=== PATIENT | male | born 1945 | race Caucasian/White ===

== ENCOUNTER 2019-06-08 06:44 | Outpatient (CLI) | payer MEDICARE, SELFPAY ==
[2019-06-08 07:35] LABS: Hemoglobin A1C 7.4 % (<5.7)
[2019-06-08 07:37] LABS: Alanine Aminotransferase 13 U/L (4-50); Albumin Level 4.2 g/dL (3.5-5.1); Alkaline Phosphatase 69 U/L (38-126); Aspartate Amino Transferase 17 U/L (17-59); Bilirubin,Total 0.4 mg/dL (0.2-1.3); Blood Urea Nitrogen 42 mg/dL (9-20); Calcium 8.9 mg/dL (8.4-10.2); Carbon Dioxide 29 mmol/L (22-30); Chloride 102 mmol/L (98-107); Cholesterol 178 mg/dL (0-200); Estimated Glomerular Filt Rate 46; Glucose 137 mg/dL (75-110); HDL Direct 22 mg/dL; Potassium 4.1 mmol/L (3.4-5.0); Sodium 140 mmol/L (137-145); Triglycerides 209 mg/dL (<150)
[2019-06-08 07:48] LABS: LDL Cholesterol Direct 125 mg/dL
== END 2019-06-08 06:45 | disposition home or self-care (01) ==
PROVIDERS: PCP Internal Medicine; Visit Provider Internal Medicine
DX: I10 Essential (primary) hypertension (principal); E11.22 Type 2 diabetes mellitus with diabetic chronic kidney disease; E78.5 Hyperlipidemia, unspecified
CPT/HCPCS: 36415; 80053; 80061; 83036

== ENCOUNTER 2020-01-05 06:49 | Outpatient (CLI) | payer MEDICARE, SELFPAY ==
[2020-01-05 07:46] LABS: LDL Cholesterol Direct 139 mg/dL
[2020-01-05 07:49] LABS: Hemoglobin A1C 7.4 % (<5.7)
[2020-01-05 07:50] LABS: Alanine Aminotransferase 18 U/L (4-50); Albumin Level 3.9 g/dL (3.5-5.1); Alkaline Phosphatase 83 U/L (38-126); Anion Gap 6 mmol/L (8-16); Aspartate Amino Transferase 20 U/L (17-59); Bilirubin,Total 0.4 mg/dL (0.2-1.3); Blood Urea Nitrogen 32 mg/dL (9-20); Calcium 8.9 mg/dL (8.4-10.2); Carbon Dioxide 26 mmol/L (22-30); Chloride 107 mmol/L (98-107); Cholesterol 208 mg/dL (0-200); Estimated Glomerular Filt Rate 54; Glucose 185 mg/dL (75-110); HDL Direct 24 mg/dL; Potassium 4.5 mmol/L (3.4-5.0); Sodium 139 mmol/L (137-145); Triglycerides 329 mg/dL (<150)
== END 2020-01-05 06:50 | disposition home or self-care (01) ==
PROVIDERS: PCP Internal Medicine; Visit Provider Nurse Practitioner
DX: N18.3 Chronic kidney disease, stage 3 (moderate) (principal); E11.630 Type 2 diabetes mellitus with periodontal disease; E78.5 Hyperlipidemia, unspecified; N40.0 Benign prostatic hyperplasia without lower urinary tract symptoms; F32.9 Major depressive disorder, single episode, unspecified
CPT/HCPCS: 36415; 80053; 80061; 83036; 84153; 84443

== ENCOUNTER 2020-07-06 06:36 | Outpatient (CLI) | payer MEDICARE, SELFPAY ==
[2020-07-06 07:43] LABS: Alanine Aminotransferase 26 U/L (4-50); Alkaline Phosphatase 89 U/L (38-126); Anion Gap 8 mmol/L (8-16); Aspartate Amino Transferase 27 U/L (17-59); Bilirubin,Total 0.4 mg/dL (0.2-1.3); Blood Urea Nitrogen 29 mg/dL (9-20); Calcium 8.4 mg/dL (8.4-10.2); Carbon Dioxide 30 mmol/L (22-30); Chloride 103 mmol/L (98-107); Cholesterol 125 mg/dL (0-200); Estimated Glomerular Filt Rate 54; Glucose 250 mg/dL (75-110); HDL Direct 20 mg/dL; Potassium 4.9 mmol/L (3.4-5.0); Sodium 141 mmol/L (137-145); Triglycerides 330 mg/dL (<150)
[2020-07-06 08:02] LABS: Hemoglobin A1C 9.9 % (<5.7)
[2020-07-06 08:48] LABS: LDL Cholesterol Direct 40 mg/dL
== END 2020-07-06 06:37 | disposition home or self-care (01) ==
PROVIDERS: PCP Internal Medicine; Visit Provider Internal Medicine
DX: E11.630 Type 2 diabetes mellitus with periodontal disease (principal); I10 Essential (primary) hypertension; E78.5 Hyperlipidemia, unspecified
CPT/HCPCS: 36415; 80053; 80061; 83036

== ENCOUNTER 2020-10-11 06:44 | Outpatient (CLI) | payer MEDICARE, SELFPAY ==
[2020-10-11 07:27] LABS: Alanine Aminotransferase 14 U/L (4-50); Albumin Level 4.1 g/dL (3.5-5.1); Alkaline Phosphatase 74 U/L (38-126); Anion Gap 10 mmol/L (8-16); Aspartate Amino Transferase 20 U/L (17-59); Bilirubin,Total 0.2 mg/dL (0.2-1.3); Blood Urea Nitrogen 33 mg/dL (9-20); Calcium 8.9 mg/dL (8.4-10.2); Carbon Dioxide 27 mmol/L (22-30); Chloride 104 mmol/L (98-107); Cholesterol 127 mg/dL (0-200); Estimated Glomerular Filt Rate 49; Glucose 164 mg/dL (75-110); HDL Direct 25 mg/dL; Hemoglobin A1C 8.3 % (<5.7); Potassium 4.6 mmol/L (3.4-5.0); Sodium 141 mmol/L (137-145); Triglycerides 232 mg/dL (<150)
[2020-10-11 07:38] LABS: LDL Cholesterol Direct 57 mg/dL
[2020-10-11 08:03] LABS: Creatinine Urine 30.3 mg/dL
[2020-10-11 08:07] LABS: MALB Creatinine Ratio 211.2 mg/g (0-30)
== END 2020-10-11 06:45 | disposition home or self-care (01) ==
PROVIDERS: PCP Internal Medicine; Visit Provider Nurse Practitioner
DX: E78.5 Hyperlipidemia, unspecified (principal); E11.630 Type 2 diabetes mellitus with periodontal disease
CPT/HCPCS: 36415; 80053; 80061; 82043; 83036

== ENCOUNTER 2021-01-14 06:36 | Outpatient (CLI) | payer MEDICARE, SELFPAY ==
[2021-01-14 07:47] LABS: Alanine Aminotransferase 15 U/L (4-50); Albumin Level 4.3 g/dL (3.5-5.1); Alkaline Phosphatase 86 U/L (38-126); Anion Gap 7 mmol/L (8-16); Aspartate Amino Transferase 24 U/L (17-59); Bilirubin,Total 0.4 mg/dL (0.2-1.3); Blood Urea Nitrogen 43 mg/dL (9-20); Carbon Dioxide 30 mmol/L (22-30); Chloride 103 mmol/L (98-107); Cholesterol 152 mg/dL (0-200); Estimated Glomerular Filt Rate 49; Glucose 199 mg/dL (65-110); HDL Direct 25 mg/dL; Potassium 4.4 mmol/L (3.4-5.0); Sodium 140 mmol/L (137-145); Triglycerides 328 mg/dL (<150)
[2021-01-14 07:58] LABS: LDL Cholesterol Direct 77 mg/dL
== END 2021-01-14 06:37 | disposition home or self-care (01) ==
PROVIDERS: PCP Internal Medicine; Visit Provider Nurse Practitioner
DX: E11.630 Type 2 diabetes mellitus with periodontal disease (principal); E78.5 Hyperlipidemia, unspecified
CPT/HCPCS: 36415; 80053; 80061; 83036

== ENCOUNTER 2021-03-18 10:30 | Outpatient (RCR) | payer MEDICARE, SELFPAY ==
[2021-02-13 11:14] VITALS: BMI 42.1
[2021-02-13 11:15] VITALS: BMI 42.1
== END 2021-04-14 10:48 | disposition home or self-care (01) ==
LOC: ANHDMC 10:30
PROVIDERS: PCP Internal Medicine; Visit Provider Nurse Practitioner
DX: E11.22 Type 2 diabetes mellitus with diabetic chronic kidney disease (principal); E11.65 Type 2 diabetes mellitus with hyperglycemia; N18.30 Chronic kidney disease, stage 3 unspecified; Z71.3 Dietary counseling and surveillance; Z71.89 Other specified counseling
CPT/HCPCS: 97804; G0108

== ENCOUNTER 2021-04-14 06:42 | Outpatient (CLI) | payer MEDICARE, SELFPAY ==
[2021-04-14 07:36] LABS: Hemoglobin A1C 7.8 % (<5.7)
[2021-04-14 07:40] LABS: Alanine Aminotransferase 20 U/L (4-50); Albumin Level 4.4 g/dL (3.5-5.1); Alkaline Phosphatase 105 U/L (38-126); Anion Gap 9 mmol/L (8-16); Aspartate Amino Transferase 20 U/L (17-59); Bilirubin,Total 0.5 mg/dL (0.2-1.3); Blood Urea Nitrogen 38 mg/dL (9-20); Calcium 8.8 mg/dL (8.4-10.2); Carbon Dioxide 27 mmol/L (22-30); Chloride 100 mmol/L (98-107); Cholesterol 156 mg/dL (0-200); Estimated Glomerular Filt Rate 42; Glucose 179 mg/dL (65-110); HDL Direct 23 mg/dL; Sodium 136 mmol/L (137-145); Triglycerides 254 mg/dL (<150)
[2021-04-14 07:51] LABS: LDL Cholesterol Direct 86 mg/dL
== END 2021-04-14 06:43 | disposition home or self-care (01) ==
LOC: ANHLAB 06:44
PROVIDERS: PCP Internal Medicine; Visit Provider Nurse Practitioner
DX: E78.5 Hyperlipidemia, unspecified (principal); E11.22 Type 2 diabetes mellitus with diabetic chronic kidney disease; N18.30 Chronic kidney disease, stage 3 unspecified
CPT/HCPCS: 36415; 80053; 80061; 83036

== ENCOUNTER 2021-06-06 09:30 | Outpatient (RCR) | payer MEDICARE, SELFPAY | END 2021-08-04 09:23 | disposition home or self-care (01) | LOC: ANHDMC 09:30 | PROVIDERS: PCP Internal Medicine; Visit Provider Nurse Practitioner | DX: E11.22 Type 2 diabetes mellitus with diabetic chronic kidney disease (principal); E11.65 Type 2 diabetes mellitus with hyperglycemia; N18.30 Chronic kidney disease, stage 3 unspecified; Z71.89 Other specified counseling | CPT/HCPCS: 99199; G0109 ==

== ENCOUNTER 2021-08-14 10:10 | Outpatient (RCR) | payer MEDICARE, SELFPAY | END 2021-11-03 13:15 | disposition home or self-care (01) | LOC: ANHDMC 10:10 | PROVIDERS: PCP Internal Medicine; Visit Provider Nurse Practitioner | DX: E11.22 Type 2 diabetes mellitus with diabetic chronic kidney disease (principal); Z71.3 Dietary counseling and surveillance | CPT/HCPCS: G0108 ==

== ENCOUNTER 2021-10-16 06:35 | Outpatient (CLI) | payer MEDICARE, SELFPAY ==
[2021-10-16 07:26] LABS: Alanine Aminotransferase 19 U/L (6-50); Albumin Level 4.4 g/dL (3.5-5.1); Alkaline Phosphatase 96 U/L (38-126); Anion Gap 8 mmol/L (8-16); Aspartate Amino Transferase 32 U/L (17-59); Bilirubin,Total 0.4 mg/dL (0.2-1.3); Blood Urea Nitrogen 36 mg/dL (9-20); Calcium 8.5 mg/dL (8.4-10.2); Carbon Dioxide 30 mmol/L (22-30); Chloride 101 mmol/L (98-107); Cholesterol 138 mg/dL (0-200); Estimated Glomerular Filt Rate 45; Glucose 168 mg/dL (65-110); HDL Direct 22 mg/dL; Potassium 4.1 mmol/L (3.4-5.0); Sodium 139 mmol/L (137-145); Triglycerides 272 mg/dL (<150)
[2021-10-16 07:37] LABS: LDL Cholesterol Direct 70 mg/dL
[2021-10-16 08:34] LABS: Hemoglobin A1C 7.9 % (<5.7)
[2021-10-16 10:59] LABS: Creatinine Urine 113.5 mg/dL
[2021-10-16 11:19] LABS: MALB Creatinine Ratio 421.3 mg/g (0-30); Microalbumin Urine Random 478.2 mg/L (0-16.7)
== END 2021-10-16 06:36 | disposition home or self-care (01) ==
PROVIDERS: PCP Internal Medicine; Visit Provider Internal Medicine
DX: E78.5 Hyperlipidemia, unspecified (principal); E11.22 Type 2 diabetes mellitus with diabetic chronic kidney disease; I50.30 Unspecified diastolic (congestive) heart failure; E11.9 Type 2 diabetes mellitus without complications; N18.30 Chronic kidney disease, stage 3 unspecified
CPT/HCPCS: 36415; 80053; 80061; 82043; 83036

== ENCOUNTER 2022-01-21 06:37 | Outpatient (CLI) | payer MEDICARE, SELFPAY ==
[2022-01-21 07:43] LABS: Alanine Aminotransferase 22 U/L (6-50); Albumin Level 4.4 g/dL (3.5-5.1); Alkaline Phosphatase 79 U/L (38-126); Anion Gap 14 mmol/L (8-16); Aspartate Amino Transferase 37 U/L (17-59); Bilirubin,Total 0.4 mg/dL (0.2-1.3); Blood Urea Nitrogen 35 mg/dL (9-20); Calcium 8.4 mg/dL (8.4-10.2); Carbon Dioxide 23 mmol/L (22-30); Chloride 104 mmol/L (98-107); Cholesterol 156 mg/dL (0-200); Estimated Glomerular Filt Rate 54; Glucose 155 mg/dL (65-110); HDL Direct 22 mg/dL; Potassium 4.3 mmol/L (3.4-5.0); Sodium 141 mmol/L (137-145); Triglycerides 285 mg/dL (<150)
[2022-01-21 07:54] LABS: LDL Cholesterol Direct 79 mg/dL
[2022-01-21 08:06] LABS: Creatinine Urine 95.7 mg/dL
[2022-01-21 08:55] LABS: Microalbumin Urine Random > 1140.0 mg/L (0-16.7)
== END 2022-01-21 06:38 | disposition home or self-care (01) ==
LOC: ANHLAB 06:40
PROVIDERS: PCP Internal Medicine; Visit Provider Nurse Practitioner
DX: E78.5 Hyperlipidemia, unspecified (principal); E11.22 Type 2 diabetes mellitus with diabetic chronic kidney disease; N18.30 Chronic kidney disease, stage 3 unspecified
CPT/HCPCS: 36415; 80053; 80061; 82043; 83036

== ENCOUNTER 2022-04-11 11:02 | Outpatient (CLI) | payer MEDICARE, SELFPAY ==
[2022-04-11 11:52] LABS: Hematocrit 47.9 % (42.0-52.0); Hemoglobin 15.4 g/dL (14.0-18.0); Mean Corpuscular HGB Conc 32.2 g/dl (32-36); Mean Corpuscular Hemoglobin 28.8 pg (26-34); Mean Corpuscular Volume 89.5 fl (80-100); Mean Platelet Volume 10.1 fl (7.4-10.4); Platelet Count Result 279 k/mm3 (150-375); Red Blood Count 5.35 M/mm3 (4.6-6.20); White Blood Count 10.8 K/mm3 (4.5-10.0)
[2022-04-11 12:04] LABS: Albumin Level 4.4 g/dL (3.5-5.1); Anion Gap 8 mmol/L (8-16); Blood Urea Nitrogen 26 mg/dL (9-20); Calcium 8.6 mg/dL (8.4-10.2); Carbon Dioxide 25 mmol/L (22-30); Chloride 103 mmol/L (98-107); Estimated Glomerular Filt Rate > 60; Glucose 134 mg/dL (65-110); Phosphorus 3.7 mg/dL (2.5-4.5); Potassium 4.5 mmol/L (3.4-5.0); Sodium 136 mmol/L (137-145)
[2022-04-11 12:13] LABS: Appearance Urine Clear (Clear); Bilirubin Urine Negative (Negative); Blood Urine Negative (Negative); Color Urine Yellow (Yellow); Glucose Urine UA 2+ mg/dL (Negative); Ketones Urine Negative (Negative); Leukocyte Esterase Ur Negative LEU/UL (Negative); Nitrate Urine Negative (Negative); Protein Urine 3+ mg/dL (Negative); Urobilinogen Urine 0.2 mg/dL (<2.0); pH Urine 5.5 (5.0-9.0)
[2022-04-11 12:20] LABS: Creatinine Urine 58.8 mg/dL
[2022-04-11 12:39] LABS: Mucus Urine Rare /lpf; Squamous Epithelial Cell Urine Rare /hpf (Few); WBC Urine 0-3 /hpf
[2022-04-11 12:43] LABS: Complement C3 167 mg/dL (88-165)
[2022-04-11 12:44] LABS: Add Urine Microscopic? YES; Total Protein Urine Random 382 mg/dL
[2022-04-11 13:05] LABS: Erythrocyte Sedimentation Rate 18 mm/hr (0-20)
[2022-04-15 13:04] LABS: Kappa\\Lambda Light Chains 1.35 (0.26-1.65); Lambda Light Chain 41.1 mg/L (5.7-26.3)
[2022-04-16 17:34] LABS: Complement Total CH50 >60 U/mL (31-60)
== END 2022-04-11 11:03 | disposition home or self-care (01) ==
LOC: ANHLAB 11:08
PROVIDERS: PCP Internal Medicine; Visit Provider Internal Medicine Nephrology
DX: N18.31 Chronic kidney disease, stage 3a (principal)
CPT/HCPCS: 36415; 80069; 81001; 82570; 83883; 83970; 84156; 85027; 85652; 86038; 86160; 86162; 86334

== ENCOUNTER 2022-04-21 10:15 | Outpatient (CLI) | payer MEDICARE, SELFPAY ==
[2022-04-28 09:47] LABS: Albumin 74 %; Creat 24 Hr 0.48 g/24 h (0.50-2.15); Measured Kappa Chains 1.25 mg/dL (<2.00); Measured Lambda Chains <1.00 mg/dL (<2.00); Pro/Creat Ratio 876 mg/g creat (<100); Protein,total, 24 Hr Ur 418 mg/24 h (<100); Total Kappa Chains 13.75 mg/24 h
== END 2022-04-21 10:16 | disposition home or self-care (01) ==
PROVIDERS: PCP Internal Medicine; Visit Provider Internal Medicine Nephrology
DX: N18.31 Chronic kidney disease, stage 3a (principal)
CPT/HCPCS: 86335

== ENCOUNTER 2022-04-24 13:04 | Outpatient (CLI) | payer MEDICARE, SELFPAY ==
--- NOTE | ~2022-04-24 | US_ITS ---
Renal-Bladder ultrasound Clinical History: Chronic kidney disease Technique: Real-time sonographic imaging of the kidneys and urinary bladder was performed. Findings: The right kidney measures 10.0 cm in length and the left kidney measures 10.9 cm. There is no hydronephrosis or renal calculus identified. Renal cortical echogenicity is within normal limits. No solid renal mass lesion is identified. Small left renal cysts noted. The urinary bladder is partially distended at the time of this exam. No intraluminal echoes are ident ified. No abnormal wall thickening is seen. Impression: No significant abnormality seen. Reviewed, dictated and finalized at location [] ON THERAPIST Impression: No significant abnormality seen.
== END 2022-04-24 13:05 | disposition home or self-care (01) ==
PROVIDERS: PCP Internal Medicine; Visit Provider Internal Medicine Nephrology
DX: N18.31 Chronic kidney disease, stage 3a (principal)
CPT/HCPCS: 76775

== ENCOUNTER 2022-05-28 09:43 | Outpatient (CLI) | payer MEDICARE, SELFPAY ==
[2022-05-28 10:36] LABS: Albumin Level 4.3 g/dL (3.5-5.1); Anion Gap 9 mmol/L (8-16); Blood Urea Nitrogen 32 mg/dL (9-20); Calcium 8.2 mg/dL (8.4-10.2); Carbon Dioxide 27 mmol/L (22-30); Chloride 103 mmol/L (98-107); Estimated Glomerular Filt Rate 53; Glucose 138 mg/dL (65-110); Phosphorus 3.7 mg/dL (2.5-4.5); Potassium 4.2 mmol/L (3.4-5.0); Sodium 139 mmol/L (137-145)
[2022-05-28 12:35] LABS: Creatinine Urine 23.2 mg/dL; Total Protein Urine Random 101 mg/dL; Ur Ttl Prot Creatinine Ratio 4.35 mg/mg (0-0.20)
== END 2022-05-28 09:44 | disposition home or self-care (01) ==
PROVIDERS: PCP Internal Medicine; Visit Provider Internal Medicine Nephrology
DX: N18.31 Chronic kidney disease, stage 3a (principal)
CPT/HCPCS: 36415; 80069; 82570; 84156

== ENCOUNTER 2022-07-31 06:39 | Outpatient (CLI) | payer MEDICARE, SELFPAY ==
[2022-07-31 07:23] LABS: Hemoglobin A1C 7.2 % (<5.7)
[2022-07-31 07:31] LABS: Alanine Aminotransferase 19 U/L (6-50); Albumin Level 4.1 g/dL (3.5-5.1); Alkaline Phosphatase 70 U/L (38-126); Anion Gap 4 mmol/L (8-16); Aspartate Amino Transferase 23 U/L (17-59); Bilirubin,Total 0.6 mg/dL (0.2-1.3); Blood Urea Nitrogen 41 mg/dL (9-20); Calcium 8.3 mg/dL (8.4-10.2); Carbon Dioxide 32 mmol/L (22-30); Chloride 104 mmol/L (98-107); Cholesterol 137 mg/dL (0-200); Estimated Glomerular Filt Rate > 60; Glucose 132 mg/dL (65-110); HDL Direct 20 mg/dL; Sodium 140 mmol/L (137-145); Triglycerides 221 mg/dL (<150)
[2022-07-31 07:37] LABS: LDL Cholesterol Direct 79 mg/dL
== END 2022-07-31 06:40 | disposition home or self-care (01) ==
PROVIDERS: PCP Internal Medicine; Visit Provider Nurse Practitioner
DX: E78.5 Hyperlipidemia, unspecified (principal); E11.22 Type 2 diabetes mellitus with diabetic chronic kidney disease; N18.30 Chronic kidney disease, stage 3 unspecified
CPT/HCPCS: 36415; 80053; 80061; 83036

== ENCOUNTER 2022-09-15 10:49 | Outpatient (CLI) | payer MEDICARE, SELFPAY ==
[2022-09-15 11:32] LABS: Total Protein Urine Random 464 mg/dL; Ur Ttl Prot Creatinine Ratio 6.27 mg/mg (0-0.20)
[2022-09-15 11:35] LABS: Albumin Level 4.2 g/dL (3.5-5.1); Anion Gap 6 mmol/L (8-16); Blood Urea Nitrogen 26 mg/dL (9-20); Calcium 8.5 mg/dL (8.4-10.2); Carbon Dioxide 29 mmol/L (22-30); Chloride 102 mmol/L (98-107); Estimated Glomerular Filt Rate > 60; Glucose 140 mg/dL (65-110); Potassium 4.1 mmol/L (3.4-5.0); Sodium 137 mmol/L (137-145)
[2022-09-15 11:46] LABS: Parathyroid Intact 64.6 pg/mL (7.5-53.5)
== END 2022-09-15 10:50 | disposition home or self-care (01) ==
PROVIDERS: PCP Internal Medicine; Visit Provider Internal Medicine Nephrology
DX: N18.31 Chronic kidney disease, stage 3a (principal); R80.1 Persistent proteinuria, unspecified
CPT/HCPCS: 36415; 80069; 82570; 83970; 84156

== ENCOUNTER 2022-10-28 06:41 | Outpatient (CLI) | payer MEDICARE, SELFPAY ==
[2022-10-28 07:26] LABS: Alanine Aminotransferase 20 U/L (6-50); Albumin Level 4.2 g/dL (3.5-5.1); Alkaline Phosphatase 78 U/L (38-126); Anion Gap 8 mmol/L (8-16); Aspartate Amino Transferase 21 U/L (17-59); Bilirubin,Total 0.4 mg/dL (0.2-1.3); Blood Urea Nitrogen 33 mg/dL (9-20); Calcium 8.4 mg/dL (8.4-10.2); Carbon Dioxide 25 mmol/L (22-30); Chloride 106 mmol/L (98-107); Estimated Glomerular Filt Rate 59; Glucose 154 mg/dL (65-110); Phosphorus 4.4 mg/dL (2.5-4.5); Potassium 4.5 mmol/L (3.4-5.0); Sodium 139 mmol/L (137-145)
[2022-10-28 08:44] LABS: Hemoglobin A1C 7.6 % (<5.7)
== END 2022-10-28 06:42 | disposition home or self-care (01) ==
PROVIDERS: PCP Family Medicine; Visit Provider Internal Medicine
DX: E11.22 Type 2 diabetes mellitus with diabetic chronic kidney disease (principal); I13.0 Hypertensive heart and chronic kidney disease with heart failure and stage 1 through stage 4 chronic kidney disease, or unspecified chronic kidney disease; N18.2 Chronic kidney disease, stage 2 (mild)
CPT/HCPCS: 36415; 80053; 83036; 84100

== ENCOUNTER 2022-11-18 02:58 | Emergency (ER) | payer MEDICARE, SELFPAY ==
--- NOTE | ~2022-11-18 | CT_ITS ---
CT head without contrast Indication: Vertigo COMPARISON: 10/11/2015 Technique: Serial scans were obtained through the brain without the administration of contrast. Dose reduction technique was used on this scan by utilizing automated exposure control and iterative recon struction technique. The dose-length product (DLP) was 605.33 mGy-cm. Findings: There is no evidence of intracranial hemorrhage, mass lesion, or acute infarct. The ventri cles and subarachnoid spaces are dilated, consistent with mild atrophy. Low attenuation regions are seen within the periventricular white matter bilaterally, likely representing changes from chronic mi crovascular ischemic disease. There is no evidence of edema, mass effect or midline shift. The visu alized paranasal sinuses and mastoid air cells are clear. Impression: No intracranial hemorrhage, mass, or acute infarct. Atrophy and chronic white matter changes, as above. Reviewed, dictated and finalized at location . Impression: No intracranial hemorrhage, mass, or acute infarct. Atrophy and chronic white matter changes, as above.
[2022-11-18 03:03] VITALS: BP 188/78; O2SAT 96
--- NOTE | 2022-11-18 03:12 | ECG_ITS ---
Measurements Intervals [place] Rate: 66 P: 8 NV: 188 QRS: -3 QRSD: 84 T: 0 QT: 385 QTc: 404 Interpretive Statements SINUS RHYTHM WITH SINUS ARRHYTHMIA VOLTAGE CRITERIA FOR LVH CONSIDER ANTERIOR INFARCT, AGE INDETERMINATE INFERIOR INFARCT, AGE INDETERMINATE BASELINE ARTIFACT- I, II, III, AVR, AVL, AVF ABNORMAL ECG NO PREVIOUS ECG AVAILABLE FOR COMPARISON Electronically Signed On 11-18-2022 9:54:35 CDT by Harrison Ga D.O.
[2022-11-18 03:40] VITALS: PULSE 69
[2022-11-18 03:43] LABS: Basophils Absolute Auto 0.1 K/mm3 (0.0-0.1); Eosinophils Absolute Auto 0.3 K/mm3 (0-0.3); Hematocrit 47.5 % (42.0-52.0); Hemoglobin 15.5 g/dL (14.0-18.0); Immature Granulocyte Absolute 0.05 K/mm3 (0.00-0.031); Immature Granulocyte Percent A 0.5 % (0-0.5); Lymphocytes Percent Auto 28.9 % (18.3-44.2); Mean Corpuscular HGB Conc 32.6 g/dl (32-36); Mean Corpuscular Volume 88.8 fl (80-100); Mean Platelet Volume 9.3 fl (7.4-10.4); Monocytes Absolute Auto 0.8 K/mm3 (0.1-0.6); Monocytes Percent Auto 7.6 % (2.6-8.5); Neutrophils Absolute Auto 5.9 K/mm3 (1.3-6.7); Platelet Count Result 266 k/mm3 (150-375); Red Blood Count 5.35 M/mm3 (4.6-6.20); Red Cell Distribution Width 13.7 % (11.5-14.5)
[2022-11-18 03:45] VITALS: BP 177/85; BP 182/91; BP 184/76; PULSE 70; PULSE 72; PULSE 73
[2022-11-18 03:55] LABS: Alanine Aminotransferase 22 U/L (6-50); Albumin Level 4.2 g/dL (3.5-5.1); Alkaline Phosphatase 71 U/L (38-126); Anion Gap 5 mmol/L (8-16); Aspartate Amino Transferase 24 U/L (17-59); Bilirubin,Total 0.4 mg/dL (0.2-1.3); Blood Urea Nitrogen 40 mg/dL (9-20); Calcium 8.5 mg/dL (8.4-10.2); Carbon Dioxide 28 mmol/L (22-30); Chloride 106 mmol/L (98-107); Estimated Glomerular Filt Rate > 60; Glucose 160 mg/dL (65-110); Potassium 4.2 mmol/L (3.4-5.0); Sodium 139 mmol/L (137-145)
[2022-11-18] MEDS: MECLIZINE HCL 25 MG TABLET PO (05:26)
[2022-11-18] MEDS: SODIUM CHLORIDE 0.9% IV 1,000 ML 999 ML IV CONT (05:26)
[2022-11-18] MEDS: SCOPOLAMINE 1.5 MG PATCH TRANSDERM (05:26)
--- NOTE | 2022-11-18 06:54 | ED.GENADULT ---
HPI - General Adult General Chief complaint: Dizziness Stated complaint: sabrina had dizziness for the last 12hrs Time Seen by Provider: 11/18/22 03:46 History of Present Illness HPI narrative: This is a 77-year-old male presenting ED with chief complaint of dizziness That started 12 hours prior to arrival. Patient says that whenever he tries to go from sitting to standing he becomes dizzy. He is not able to describe it very well and cannot provide more information other than that he feels funny. When he has these episodes they completely resolved in between occurrences. They are triggered by head movements. They are not associated with double vision, dysphagia dysarthria or loss of coordination. Patient says they are associated with some nausea. He denies numbness tingling weakness to any extremity. 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, without long-term current use of insulin Family History Family History Father Cerebrovascular accident Family history of malignant neoplasm Family history of malignant melanoma Patient's father is Mother Family history of dementia Patient's mother is Social History Social History Smoking status: Former smoker Tobacco type: pipe Smoking end date: 05/10/99 Alcohol intake: current Drinks per week: 1 Substance use: never Substance use type: does not use Lack of Transportation: No Lack of Food: Never True Current Housing: I Have Housing Concerned About Future Housing: No Difficulty Paying Gas/Electric Bills: No Difficulty Paying for Meds: No Currently Unemployed: No Education: Master's Degree or Higher Difficulty w/ Childcare or Family Care: No Living arrangements: with family Gender identity (if verbalized by the patient): Male Spiritual care concerns: No Exam Narrative: APPEARANCE: No apparent distress. A&O x4 Head: atraumatic. EYES: EOMI, NOSE: Atraumatic NECK: Trachea midline RESPIRATORY: No increased rate of breathing clear to auscultation CARDIOVASCULAR: RRR, no peripheral edema ABDOMINAL: Non-distended soft no guarding or rebound MUSCULOSKELETAl: No obvious deformities NEURO: Alert. Cranial nerves 2-12 grossly intact. Sensation light touch, motor function cerebellar function intact for 4 extremities. Gait exam was normal. SKIN:: Warm, dry. Normal color PSYCHIATRIC: Normal affect Course Vital Signs Vital signs: Vital Signs Blood Pressure 188/78 H 11/18/22 03:03 Pulse Oximetry 96 11/18/22 03:03 Pulse Rate 73 11/18/22 03:45 Blood Pressure 184/76 H 11/18/22 03:45 Pulse Oximetry 96 11/18/22 03:03 Medical Decision Making MDM Narrative Medical decision making narrative: -Presentation: 69-year-old male presenting with episodic episodes of dizziness. No neurologic findings on exam. -DDX includes but is not limited to: Acute vestibular syndrome, brain mass, dehydration, BPPV -Co-morbidities complicating care: chronic kidney disease, hypertension, anxiety, congestive heart failure, diabetes -Social determinants of health: patient is a retired middle school director, lives with his Payal -External Chart Review: review primary care office visit from October
[2022-11-18] MEDS: METOCLOPRAMIDE HCL 10 MG TABLET PO (07:08)
[2022-11-18] MEDS: diazePAM INJ (*CRX) 10 MG/2 ML SYRINGE 5 MG IV PUSH (07:09)
[2022-11-18 07:15] VITALS: BP 157/82; PULSE 66; RESP 18; O2SAT 96
[2022-11-18 08:19] VITALS: BP 182/79; PULSE 70; RESP 16; O2SAT 96
== END 2022-11-18 08:20 | disposition home or self-care (01) ==
PROVIDERS: Emergency Provider Emergency Medicine; PCP Family Medicine
DX: R42 Dizziness and giddiness (principal); E86.0 Dehydration; I13.0 Hypertensive heart and chronic kidney disease with heart failure and stage 1 through stage 4 chronic kidney disease, or unspecified chronic kidney disease; E11.22 Type 2 diabetes mellitus with diabetic chronic kidney disease; N18.30 Chronic kidney disease, stage 3 unspecified; I50.9 Heart failure, unspecified; N40.1 Benign prostatic hyperplasia with lower urinary tract symptoms; N13.8 Other obstructive and reflux uropathy; E78.5 Hyperlipidemia, unspecified; E11.69 Type 2 diabetes mellitus with other specified complication; R80.8 Other proteinuria; E11.630 Type 2 diabetes mellitus with periodontal disease; Z87.891 Personal history of nicotine dependence; Z79.85 Long-term (current) use of injectable non-insulin antidiabetic drugs; Z79.4 Long term (current) use of insulin; Z79.84 Long term (current) use of oral hypoglycemic drugs; R94.31 Abnormal electrocardiogram [ECG] [EKG]
CPT/HCPCS: 36415; 70450; 80053; 85025; 93005; 96361; 96374; 99284; A9270; J3360; J7030

== ENCOUNTER 2023-02-02 12:46 | Outpatient (CLI) | payer MEDICARE, SELFPAY ==
--- NOTE | 2023-02-02 13:00 | ECHO_ITS ---
Patient Info Name: Luis Kendrick Age: 77 years : 1945 Gender: Male Ht: 67 in Wt: 250 lbs BSA: 2.37 m2 HR: 78 bpm BP: 174 / 80 mmHg Technical Quality: Fair Exam Date: 02/02/2023 1:20 PM Exam Location: [facility] Patient Status: Outpatient Admit Date: 02/02/2023 Staff Ordering Physician: Aron Fernandes MD Software Configuration Specialist: Shabana Nieto RDCS Attending Provider: Aron Fernandes MD Referring Physician: Dom SCHUMACHER; Exam Type: CA echo doppler color flow Study Info Indications - NONRHEUMATIC AORTIC VALVE INSUFFICIENCY Complete two-dimensional, color flow and Doppler transthoracic echocardiogram is performed. Summary 1. Complete two-dimensional, color flow and Doppler transthoracic echocardiogram is performed. 2. Left ventricular chamber dimension is normal. 3. Left ventricular systolic function is normal, estimated at 60-65%. 4. The left ventricular diastolic function is grade I diastolic dysfunction. 5. E/e' 19 is elevated. 6. Left atrial chamber dimension is mildly enlarged. 7. There is mild aortic valve sclerosis. 8. There is trace aortic valve regurgitation. 9. The mitral valve has mildly calcified leaflets and moderately calcified annulus. 10. There is trace tricuspid valve regurgitation. 11. No pulmonary hypertension, estimated pulmonary arterial systolic pressure is 33 mmHg. 12. There is trace pulmonic regurgitation. Left Ventricle E/e' 19 is elevated. Left ventricular chamber dimension is normal. Left ventricular systolic function is normal, estimated at 60-65%. The left ventricular diastolic function is grade I diastolic dysfunction. Right Ventricle Right ventricular chamber dimension is normal. Right ventricular systolic function is normal. Left Atria Left atrial chamber dimension is mildly enlarged. Right Atria Right atrial chamber dimension is normal. Aortic Valve The aortic valve is trileaflet. There is mild aortic valve sclerosis. There is no aortic valve stenosis. There is trace aortic valve regurgitation. Pulmonic Valve There is trace pulmonic regurgitation. Mitral Valve The mitral valve has mildly calcified leaflets and moderately calcified annulus. There is no mitral valve stenosis. There is no mitral valve regurgitation. Tricuspid Valve There is trace tricuspid valve regurgitation. No pulmonary hypertension, estimated pulmonary arterial systolic pressure is 33 mmHg. Pericardium/Pleural There is no pericardial effusion. Inferior Vena Cava Normal inferior vena cava with >50% collapse upon inspiration consistent with normal right atrial pressure, 5 mmHg. Aorta The aortic root size at the sinus of Valsalva is normal. Left Ventricular Outflow Tract Name Value Normal LVOT 2D LVOT Diameter 2.1 cm LVOT Doppler LVOT Peak Gradient 4 mmHg LVOT Mean Gradient 3 mmHg LVOT VTI 29 cm LVOT VTI/AV VTI Ratio 0.7 LVOT Stroke Volume 98 ml LVOT CO 17.3 l/min LVOT CI 7.3 l/min/m2 Pulmonic Valve
== END 2023-02-02 12:47 | disposition home or self-care (01) ==
LOC: ANHCARD 12:48
PROVIDERS: PCP Family Medicine; Visit Provider Family Medicine
DX: I35.1 Nonrheumatic aortic (valve) insufficiency (principal)
CPT/HCPCS: 93306

== ENCOUNTER 2023-02-10 06:43 | Outpatient (CLI) | payer MEDICARE, SELFPAY ==
[2023-02-10 07:41] LABS: Hematocrit 50.4 % (42.0-52.0); Hemoglobin 15.7 g/dL (14.0-18.0); Mean Corpuscular HGB Conc 31.2 g/dl (32-36); Mean Corpuscular Hemoglobin 28.6 pg (26-34); Mean Platelet Volume 10.1 fl (7.4-10.4); Platelet Count Result 303 k/mm3 (150-375); Red Blood Count 5.48 M/mm3 (4.6-6.20); Red Cell Distribution Width 13.1 % (11.5-14.5); White Blood Count 10.3 K/mm3 (4.5-10.0)
[2023-02-10 07:54] LABS: Albumin Level 4.2 g/dL (3.5-5.1); Anion Gap 8 mmol/L (8-16); Blood Urea Nitrogen 33 mg/dL (9-20); Calcium 8.3 mg/dL (8.4-10.2); Carbon Dioxide 29 mmol/L (22-30); Chloride 102 mmol/L (98-107); Estimated Glomerular Filt Rate 49; Glucose 104 mg/dL (65-110); Phosphorus 3.7 mg/dL (2.5-4.5); Sodium 139 mmol/L (137-145)
[2023-02-10 07:55] LABS: Hemoglobin A1C 6.4 % (<5.7)
[2023-02-10 08:02] LABS: Parathyroid Intact 106.3 pg/mL (7.5-53.5)
[2023-02-10 08:40] LABS: Creatinine Urine 132.7 mg/dL
[2023-02-10 08:58] LABS: Total Protein Urine Random 314 mg/dL; Ur Ttl Prot Creatinine Ratio 2.37 mg/mg (0-0.20)
[2023-02-10 08:59] LABS: Vitamin D 25 Hydroxy 22.1 ng/mL
== END 2023-02-10 06:44 | disposition home or self-care (01) ==
LOC: ANHLAB 06:46
PROVIDERS: PCP Family Medicine; Visit Provider Internal Medicine Nephrology
DX: N18.31 Chronic kidney disease, stage 3a (principal); R80.1 Persistent proteinuria, unspecified; E21.1 Secondary hyperparathyroidism, not elsewhere classified; E11.22 Type 2 diabetes mellitus with diabetic chronic kidney disease
CPT/HCPCS: 36415; 80069; 82306; 82570; 83036; 83970; 84156; 85027

== ENCOUNTER 2023-06-08 06:45 | Outpatient (CLI) | payer MEDICARE, SELFPAY ==
[2023-06-08 07:29] LABS: Alanine Aminotransferase 17 U/L (6-50); Albumin Level 4.1 g/dL (3.5-5.1); Alkaline Phosphatase 76 U/L (38-126); Anion Gap 8 mmol/L (8-16); Aspartate Amino Transferase 24 U/L (17-59); Bilirubin,Total 0.5 mg/dL (0.2-1.3); Blood Urea Nitrogen 29 mg/dL (9-20); Calcium 8.3 mg/dL (8.4-10.2); Carbon Dioxide 30 mmol/L (22-30); Chloride 104 mmol/L (98-107); Estimated Glomerular Filt Rate 58; Glucose 94 mg/dL (65-110); Potassium 3.9 mmol/L (3.4-5.0); Sodium 142 mmol/L (137-145)
[2023-06-08 08:13] LABS: Creatinine Urine 126.7 mg/dL
[2023-06-08 10:04] LABS: Hemoglobin A1C 6.7 % (<5.7)
[2023-06-08 13:09] LABS: Microalbumin Urine Random > 1140.0 mg/L (0-16.7)
== END 2023-06-08 06:46 | disposition home or self-care (01) ==
PROVIDERS: PCP Family Medicine; Visit Provider Family Medicine
DX: E11.9 Type 2 diabetes mellitus without complications (principal)
CPT/HCPCS: 36415; 80053; 82043; 83036

== ENCOUNTER 2023-09-18 06:55 | Outpatient (CLI) | payer MEDICARE, SELFPAY ==
[2023-09-18 09:18] LABS: Hemoglobin A1C 6.1 % (<5.7)
== END 2023-09-18 06:56 | disposition home or self-care (01) ==
LOC: ANHLAB 06:56
PROVIDERS: PCP Family Medicine; Visit Provider Family Medicine
DX: E11.22 Type 2 diabetes mellitus with diabetic chronic kidney disease (principal); N18.30 Chronic kidney disease, stage 3 unspecified
CPT/HCPCS: 36415; 83036

== ENCOUNTER 2023-11-15 06:37 | Outpatient (CLI) | payer MEDICARE, SELFPAY ==
[2023-11-15 07:04] LABS: Hemoglobin 15.1 g/dL (14.0-18.0); Mean Corpuscular HGB Conc 31.5 g/dl (32-36); Mean Corpuscular Hemoglobin 28.2 pg (26-34); Mean Corpuscular Volume 89.7 fl (80-100); Mean Platelet Volume 9.9 fl (7.4-10.4); Platelet Count Result 285 k/mm3 (150-375); Red Blood Count 5.35 M/mm3 (4.6-6.20); Red Cell Distribution Width 14.1 % (11.5-14.5); White Blood Count 10.9 K/mm3 (4.5-10.0)
[2023-11-15 07:11] LABS: Creatinine Urine 68.3 mg/dL
[2023-11-15 07:17] LABS: Albumin Level 4.3 g/dL (3.5-5.1); Anion Gap 9 mmol/L (4-12); Blood Urea Nitrogen 28 mg/dL (9-20); Calcium 8.9 mg/dL (8.4-10.2); Carbon Dioxide 29 mmol/L (22-30); Chloride 103 mmol/L (98-107); Estimated Glomerular Filt Rate 53; Glucose 110 mg/dL (65-110); Phosphorus 3.6 mg/dL (2.5-4.5); Potassium 4.6 mmol/L (3.4-5.0); Sodium 141 mmol/L (137-145)
[2023-11-15 07:19] LABS: Total Protein Urine Random 577 mg/dL; Ur Ttl Prot Creatinine Ratio 8.45 mg/mg (0-0.20)
[2023-11-15 07:27] LABS: Parathyroid Intact 47.1 pg/mL (7.5-53.5)
[2023-11-15 08:35] LABS: Vitamin D 25 Hydroxy 54.5 ng/mL
== END 2023-11-15 06:38 | disposition home or self-care (01) ==
PROVIDERS: PCP Family Medicine; Visit Provider Internal Medicine Nephrology
DX: E11.22 Type 2 diabetes mellitus with diabetic chronic kidney disease (principal); N18.31 Chronic kidney disease, stage 3a; E21.1 Secondary hyperparathyroidism, not elsewhere classified; I13.0 Hypertensive heart and chronic kidney disease with heart failure and stage 1 through stage 4 chronic kidney disease, or unspecified chronic kidney disease
CPT/HCPCS: 36415; 80069; 82306; 82570; 83970; 84156; 85027

== ENCOUNTER 2023-11-24 08:23 | Emergency (ER) | payer MEDICARE, SELFPAY ==
--- NOTE | 2023-11-24 08:25 | ED.EAR ---
HPI - Ear Problem General Chief complaint: Ear Stated complaint: lt ear pain Time Seen by Provider: 11/24/23 08:25 Source: patient Mode of arrival: ambulatory Limitations: no limitations History of Present Illness HPI Narrative: Luis is a 78-year-old male patient presenting to the clinic today with complaints of left ear pain x3 days. He reports his symptoms started on Wednesday or Wednesday. Denies any fever chills. Does have some nasal congestion. States that the pain started in the ear and now he is having some pain in his neck. Did have some pain with turning his neck side to side however this has resolved after taking aspirin and Tylenol this morning. He denies any pain currently due to the Tylenol in aspirin that he took this morning. Related Data Home Medications Medication Instructions Recorded Confirmed aspirin 81 mg chewable tablet 81 mg PO DAILY 11/24/23 11/24/23 Allergies Allergy/AdvReac Type Severity Reaction Status Date / Time Myufksh-EEX-YbH Reductase AdvReac Intermediate Leg Verified 11/24/23 08:26 Inhibitor Cramping [Oysfrie-Tee-Uda Reductase Inhibitor] ceftriaxone AdvReac Mild Hives Verified 11/24/23 08:26 Review of Systems Review of Systems: Pertinent positives per HPI. Patient denies any fever, chills, rash, headache, visual changes, dizziness, cough, runny nose, sore throat, shortness of breath, chest pain, palpitations, nausea, vomiting, diarrhea, constipation, abdominal pain, or any urinary issues. 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, without long-term current use of insulin Family History Family History Father Cerebrovascular accident Family history of malignant neoplasm Family history of malignant melanoma Patient's father is Mother Family history of dementia Patient's mother is Social History Social History Smoking status: Former smoker Tobacco type: pipe Smoking end date: 05/10/99 Alcohol intake: current Drinks per week: 1 Substance use: never Substance use type: does not use Lack of Transportation: No Lack of Food: Never True Current Housing: I Have Housing Concerned About Future Housing: No Difficulty Paying Gas/Electric Bills: No Difficulty Paying for Meds: No Currently Unemployed: No Education: Master's Degree or Higher Difficulty w/ Childcare or Family Care: No Living arrangements: with family Gender identity (if verbalized by the patient): Male Spiritual care concerns: No Comments At the time of my signature, I reviewed and agree with the nursing past medical, surgical, social, and family history. There is no relevant family history pertinent to the patient complaint. Exam Narrative: General: Well-developed, obese, in no apparent distress Head: Normocephalic, atraumatic Eyes: Pupils equally round and reactive to light bilaterally, EOM intact, sclera and conjunctive clear, no discharge, lids normal Ears: TMs intact and clear, ear canals clear, no drainage, grossly hearing normal. Nose: Nares patent, clear nasal discharge, no inflammation, no sinus tenderness. Mouth: Oropharynx without lesions or masses, poor dentition, MMM. No pain to teeth upon palpation Neck: Supple, trachea midline, no enlargement of anterior or posterior cervical nodes, no thyroid masses or goiter palpable. Cardio: Regular rate and rhythm, s1 and s2 normal, no murmur appreciated. Resp: Clear to auscultation bilaterally anteriorly and posteriorly, no rho
[2023-11-24 08:33] VITALS: BP 149/52; PULSE 75; RESP 16; TEMP 36.3; O2SAT 96
== END 2023-11-24 08:55 | disposition home or self-care (01) ==
PROVIDERS: Emergency Provider Nurse Practitioner Family; PCP Family Medicine
DX: H92.02 Otalgia, left ear (principal); Z87.891 Personal history of nicotine dependence; N40.0 Benign prostatic hyperplasia without lower urinary tract symptoms; I13.0 Hypertensive heart and chronic kidney disease with heart failure and stage 1 through stage 4 chronic kidney disease, or unspecified chronic kidney disease; E11.22 Type 2 diabetes mellitus with diabetic chronic kidney disease; N18.30 Chronic kidney disease, stage 3 unspecified; I50.9 Heart failure, unspecified; E78.5 Hyperlipidemia, unspecified; Z79.82 Long term (current) use of aspirin
CPT/HCPCS: 99211; 99213; G0463

== ENCOUNTER 2024-03-23 06:54 | Outpatient (CLI) | payer MEDICARE, SELFPAY ==
[2024-03-23 07:49] LABS: Hemoglobin 15.2 g/dL (14.0-18.0); Mean Corpuscular HGB Conc 32.3 g/dl (32-36); Mean Corpuscular Hemoglobin 28.8 pg (26-34); Mean Corpuscular Volume 89.2 fl (80-100); Mean Platelet Volume 9.7 fl (7.4-10.4); Platelet Count Result 295 k/mm3 (150-375); Red Blood Count 5.27 M/mm3 (4.6-6.20); Red Cell Distribution Width 14.3 % (11.5-14.5); White Blood Count 10.1 K/mm3 (4.5-10.0)
[2024-03-23 07:58] LABS: Alanine Aminotransferase 17 U/L (6-50); Albumin Level 4.1 g/dL (3.5-5.1); Alkaline Phosphatase 61 U/L (38-126); Anion Gap 8 mmol/L (4-12); Aspartate Amino Transferase 24 U/L (17-59); Bilirubin,Total 0.4 mg/dL (0.2-1.3); Blood Urea Nitrogen 32 mg/dL (9-20); Calcium 8.9 mg/dL (8.4-10.2); Carbon Dioxide 27 mmol/L (22-30); Chloride 104 mmol/L (98-107); Cholesterol 131 mg/dL (0-200); Estimated Glomerular Filt Rate 58; Glucose 98 mg/dL (65-110); HDL Direct 26 mg/dL; Potassium 4.4 mmol/L (3.4-5.0); Sodium 139 mmol/L (137-145); Triglycerides 188 mg/dL (<150)
[2024-03-23 08:09] LABS: LDL Cholesterol Direct 64 mg/dL
== END 2024-03-23 06:55 | disposition home or self-care (01) ==
PROVIDERS: PCP Family Medicine; Visit Provider Family Medicine
DX: I13.0 Hypertensive heart and chronic kidney disease with heart failure and stage 1 through stage 4 chronic kidney disease, or unspecified chronic kidney disease (principal); I50.30 Unspecified diastolic (congestive) heart failure; E11.22 Type 2 diabetes mellitus with diabetic chronic kidney disease; N18.30 Chronic kidney disease, stage 3 unspecified; I35.1 Nonrheumatic aortic (valve) insufficiency; F41.9 Anxiety disorder, unspecified; E78.5 Hyperlipidemia, unspecified
CPT/HCPCS: 36415; 80053; 80061; 83036; 85027

== ENCOUNTER 2024-05-22 06:57 | Outpatient (CLI) | payer MEDICARE, SELFPAY ==
[2024-05-22 07:27] LABS: Hematocrit 45.4 % (42.0-52.0); Hemoglobin 14.7 g/dL (14.0-18.0); Mean Corpuscular HGB Conc 32.4 g/dl (32-36); Mean Corpuscular Hemoglobin 29.5 pg (26-34); Mean Corpuscular Volume 91.2 fl (80-100); Mean Platelet Volume 9.3 fl (7.4-10.4); Platelet Count Result 289 k/mm3 (150-375); Red Blood Count 4.98 M/mm3 (4.6-6.20); Red Cell Distribution Width 13.8 % (11.5-14.5); White Blood Count 10.7 K/mm3 (4.5-10.0)
[2024-05-22 07:50] LABS: Albumin Level 4.2 g/dL (3.5-5.1); Anion Gap 4 mmol/L (4-12); Blood Urea Nitrogen 36 mg/dL (9-20); Calcium 8.8 mg/dL (8.4-10.2); Carbon Dioxide 31 mmol/L (22-30); Chloride 102 mmol/L (98-107); Estimated Glomerular Filt Rate 45; Glucose 86 mg/dL (65-110); Phosphorus 3.9 mg/dL (2.5-4.5); Potassium 4.7 mmol/L (3.4-5.0); Sodium 137 mmol/L (137-145)
[2024-05-22 09:04] LABS: Parathyroid Intact 60.6 pg/mL (14.5-75.2); Vitamin D 25 Hydroxy 60.3 ng/mL
[2024-05-22 10:06] LABS: Creatinine Urine 74.8 mg/dL
[2024-05-22 10:36] LABS: Total Protein Urine Random 371 mg/dL; Ur Ttl Prot Creatinine Ratio 4.96 mg/mg (0-0.20)
== END 2024-05-22 06:58 | disposition home or self-care (01) ==
PROVIDERS: PCP Family Medicine; Visit Provider Internal Medicine Nephrology
DX: E21.1 Secondary hyperparathyroidism, not elsewhere classified (principal); I13.0 Hypertensive heart and chronic kidney disease with heart failure and stage 1 through stage 4 chronic kidney disease, or unspecified chronic kidney disease; N18.2 Chronic kidney disease, stage 2 (mild)
CPT/HCPCS: 36415; 80069; 82306; 82570; 83970; 84156; 85027

== ENCOUNTER 2024-10-04 06:41 | Outpatient (CLI) | payer MEDICARE, SELFPAY ==
--- OUTSIDE RECORDS SUMMARY | 2024-10-04 06:45 | XMS_ITS | Patient Health Record ---
Author Organization [facility] Address [address] [place] [address] Support Name Relationship Address Phone Luis Kendrick Guarantor Unknown [phone] Allergies No Known Allergies Reason For Referral No Information Medications Medication SIG (Take, Route, Frequency, Duration) Notes Start Date End Date Status TYLENOL ARTHRITIS EXT RELIEF prn *Reorder from [facility] for eRx and Interaction Alerts* 10/27/2007 Active Lipitor 40 MG 1/2 Every Day Oral 04/10/2005 Active Actos 30 MG 1 Every Morning Oral 04/10/2005 Active Januvia 100 MG 1 daily for diabetes Oral 10/27/2007 Active Lisinopril 10 MG 1 qd for HTN Oral 10/27/2007 Active Cymbalta 60 MG 1 Every Day; prescribed by Dr. Harrison Oral 10/27/2007 Active ALPRAZolam 0.5 MG QID prn; prescribed by Dr. Harrison Oral 10/27/2007 Active metFORMIN HCl ER (MOD) 1000 MG 1 Two Times A Day Oral 10/27/2007 Active Aleve 220 MG Two Times A Day PRN Oral 10/27/2007 Active Claritin 10 MG 1 Every Day Oral 10/08/2004 Active Cardizem CD 120 MG 1 Every Day Oral 10/03/2004 Active Triamterene-HCTZ 37.5-25 MG 2 caps po Every Day Oral 10/04/2007 Active Immunizations Vaccine Route Administration Date Status Comme nts Infuenza, trivalent, recombinant, preservative free Unknown 02/17/2006 Administered migrated LegPa tid= [id number] Date=02/17/2006 Vac= Influenza Tdap Unknown 11/02/2006 Administered migrated Leg Patid= [id number] Date=11/02/2006 Vac= Tdap Plan Of Treatment No Information
--- OUTSIDE RECORDS SUMMARY | 2024-10-04 06:45 | XMS_ITS | Clinical Summary ---
Author Organization [facility] Address [address] [place] [address] Care Team Providers Care Steel Barrel Reamer Name Role Phone Unavailable Primary Care Provider Unavailabl e Medications tirzepatide (Mounjaro) 5 mg/0.5 mL Pen Injector Inject 5 mg by subcutaneous injection every 7 days. 2 mL 08/30/2023 4:17 PM CDT Active Encounters Date Type Department Care Team Description 07/26/2024 External Device Data [facility] Provider, Abstract 07/15/2024 External Device Data [facility] Provider, Abstract 07/14/2024 External Device Data [facility] Provider, Abstract from Last 3 Months Social History Tobacco Use Types Packs/Day Years Used Date Smoking Tobacco: Never Assessed Sex and Gender Information Value Date Recorded Sex Assigned at Not on file Legal Sex Male 2:15 PM CDT Gender Identity Not on file Sexual Orientation Not on file Plan of Treatment Health Maintenance Due Date Last Done Comments DTAP/TDAP/TD VACCINES (1 - Tdap) 1964 PNEUMOCOCCAL VACCINE 50+ YEARS (1 of 1 - PCV) 03/19/19 94 ZOSTER VACCINE (1 of 2) 1994 RSV VACCINE (60+ or ) (1 - 1-dose 75+ series) 2019 INFLUENZA VACCINE (#1) 2023 Insurance RX [employer] (INTERNAL) [facility] RX AETNA Medicare Part D
--- OUTSIDE RECORDS SUMMARY | 2024-10-04 06:45 | XMS_ITS | Clinical Summary ---
Author Organization [facility] Address [address] [place] [address] Phone Care Team Providers Care Feather Shaper Name Role Phone Trae Hickman DO Primary Care Provider [phone] Allergies Active Allergy Reactions Criticality Noted Date Comments Cephalosporins 03/04/2022 Medications aspirin 81 MG tablet 1bid 0 03/05/2010 Active glipiZIDE (GLUCOTROL) 5 MG tablet 1QD 03/06/2010 Active ezetimibe (ZETIA) 10 MG tablet 1QD 03/05/2010 Active Trulicity 1.5 MG/0.5ML solution pen-injector 03/02/2022 Active Jardiance 25 MG tablet Take 1 tablet by mouth 1 (one) time each day 02/02/2022 Active furosemide (LASIX) 40 MG tablet Take 80 mg by mouth 1 (one) time each day in the morning 12/31/2021 Active Accu-Chek Guide test strip USE TO CHECK BLOOD SUGAR TWICE DAILY 12/12/2021 Active hydrALAZINE (APRESOLINE) 50 MG tablet Take 50 mg by mouth in the morning and 50 mg at noon and 50 mg in the evening. Take with meals. 02/27/2022 Active Lantus SoloStar 100 UNIT/ML injection 01/14/2022 Active [place]-3 350 MG capsule delayed-release 1 tablet 1 (one) time each day 11/05/2015 Active rosuvastatin (CRESTOR) 10 MG tablet Take 10 mg by mouth 1 (one) time each day 02/23/2022 Active amLODIPine-vals elli (EXFORGE) 10-320 MG per tablet Take 1 tablet by mouth 1 (one) time each day 12/22/2021 Active Nebivolol HCl 20 MG tablet Take by mouth Active Active Problems Problem Noted Date Diagnosed Date Chronic kidney disease stage 3A 03/04/2022 Chronic diastolic heart failure 11/05/2015 Overview (03/04/2022): Chronic diastolic congestive heart failure Type 2 diabetes mellitus without complication Other and unspecified hyperlipidemia 03/06/2010 Overview (07/23/2018): Converted unresolved ICD9, potential mismatch. 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 03/06/2010 Immunizations Immunization Administration Dates Next Due Influenza TIV (IM) 02/07/2022 Pneumococcal Conjugate 01/09/2012 Social History Tobacco Use Types Packs/Day Years Used Date Smoking Tobacco: Former Cigarettes Smokeless Tobacco: Never Tobacco Cessation:Counseling Given: Not Answered Alcohol Use Standard Drinks/Week Comments Yes 0 (1 standard drink = 0.6 oz pur e alcohol) twice a month Sex and Gender Information Value Date Recorded Sex Assigned at Not on file Legal Sex Male 9:17 AM [facility] Gender Identity Not on file Sexual Orientation Not on file Last Filed Vital Signs Vital Sign Reading Time Taken Comments Blood Pressure 138/80 03/04/2022 9:27 AM CDT Pulse 72 03/04/2022 9:27 AM CDT Temperature 35.6 C (96.1 F) 03/04/2022 9:27 AM CDT Respiratory Rate - - Oxygen Saturation - - Inhaled Oxygen Concentration - - Weight 117 kg (259 lb) 03/04/2022 9:27 AM CDT Height 170.2 cm (5' 7) 03/04/2022 9:27 AM CDT Body Mass Index 40.57 03/04/2022 9:27 AM CDT Plan of Treatment Health Maintenance Due Date Last Done Comments Pneumococcal PPSV23/PCV13 65 + Years / Low and Medium Risk (1 of 4 - PCV) 1994 Influenza Vaccine (Season Ended) 2025 02/08/20 22 Insurance [employer] MEDICARE Care Teams Feather Shaper Relationship Specialty Start Date End Date Trae Hickman DO [address] [place] [phone] PCP - General Internal Medicine 01/29/22
[2024-10-04 07:47] LABS: Hematocrit 45.1 % (42.0-52.0); Hemoglobin 14.3 g/dL (14.0-18.0); Mean Corpuscular HGB Conc 31.7 g/dl (32-36); Mean Corpuscular Hemoglobin 29.1 pg (26-34); Mean Corpuscular Volume 91.7 fl (80-100); Mean Platelet Volume 9.4 fl (7.4-10.4); Platelet Count Result 274 k/mm3 (150-375); Red Blood Count 4.92 M/mm3 (4.6-6.20); Red Cell Distribution Width 13.6 % (11.5-14.5); White Blood Count 9.1 K/mm3 (4.5-10.0)
[2024-10-04 08:02] LABS: Hemoglobin A1C 5.7 % (<5.7)
[2024-10-04 08:07] LABS: Alanine Aminotransferase 18 U/L (6-50); Albumin Level 4.2 g/dL (3.5-5.1); Alkaline Phosphatase 60 U/L (38-126); Anion Gap 8 mmol/L (4-12); Aspartate Amino Transferase 29 U/L (17-59); Bilirubin,Total 0.5 mg/dL (0.2-1.3); Blood Urea Nitrogen 36 mg/dL (9-20); Calcium 9.1 mg/dL (8.4-10.2); Carbon Dioxide 29 mmol/L (22-30); Chloride 99 mmol/L (98-107); Estimated Glomerular Filt Rate 46; Glucose 91 mg/dL (65-110); Potassium 4.5 mmol/L (3.4-5.0); Sodium 136 mmol/L (137-145)
== END 2024-10-04 06:42 | disposition home or self-care (01) ==
PROVIDERS: PCP Family Medicine; Visit Provider Family Medicine
DX: E11.22 Type 2 diabetes mellitus with diabetic chronic kidney disease (principal); E66.3 Overweight; I12.9 Hypertensive chronic kidney disease with stage 1 through stage 4 chronic kidney disease, or unspecified chronic kidney disease; N18.30 Chronic kidney disease, stage 3 unspecified
CPT/HCPCS: 36415; 80053; 83036; 85027

== ENCOUNTER 2024-11-18 06:48 | Outpatient (CLI) | payer MEDICARE, SELFPAY ==
--- OUTSIDE RECORDS SUMMARY | 2024-11-18 06:51 | XMS_ITS | Patient Health Record ---
Author Organization [facility] Address [address] [place] [address] Support Name Relationship Address Phone Luis Kendrick Guarantor Unknown [phone] Allergies No Known Allergies Reason For Referral No Information Medications Medication SIG (Take, Route, Frequency, Duration) Notes Start Date End Date Status TYLENOL ARTHRITIS EXT RELIEF prn *Reorder from [facility] for eRx and Interaction Alerts* 10/27/2007 Active [...] Vaccine Route Administration Date Status Comme nts Tdap Unknown 11/02/2006 Administered migrated Leg Patid= [id number] Date=11/02/2006 Vac= Tdap Infuenza, trivalent, recombinant, preservative free Unknown 02/17/2006 Administered migrated LegPa tid= [id number] Date=02/17/2006 Vac= Influenza Plan Of Treatment No Information
--- OUTSIDE RECORDS SUMMARY | 2024-11-18 06:51 | XMS_ITS | Clinical Summary ---
Author Organization [employer] [facility] Address [address] [facility] [address] Care Team Providers Care Event Designer Name Role Phone Unavailable Primary Care Provider Unavailabl e Medications tirzepatide (Mounjaro) 5 mg/0.5 mL Pen Injector Inject 5 mg by subcutaneous injection every 7 days. 2 mL 08/30/2023 4:17 PM CDT Active Social History Tobacco Use Types Packs/Day Years [...] 1-dose 75+ series) 2019 INFLUENZA VACCINE (#1) 2024 Insurance RX [employer] (INTERNAL) [facility] RX [employer] Medicare Part D
--- OUTSIDE RECORDS SUMMARY | 2024-11-18 06:51 | XMS_ITS | Clinical Summary ---
Author Organization [facility] Address [address] [place] [phone] Phone Care Team Providers Care Transplant Registered Nurse Name Role Phone Trae Hickman DO Primary Care Provider [phone] Allergies Active Allergy Reactions Criticality Noted Date [...] Lantus SoloStar 100 UNIT/ML injection 01/14/2022 Active [place]-3 350 MG capsule delayed-release 1 tablet 1 [...] on file Legal Sex Male 9:[address] [facility] Gender Identity Not on file Sexual Orientation [...] / Low and Medium Risk (1 of 2 - PCV) 1994 Influenza Vaccine (#1) 2025 02/07/2022 Insurance [place] [address] Care Teams Transplant Registered Nurse Relationship Specialty Start Date End Date Trae Hickman DO [address] [place] [phone] PCP - General Internal Medicine 01/29/22
[2024-11-18 07:47] LABS: Hematocrit 47.1 % (42.0-52.0); Hemoglobin 15.3 g/dL (14.0-18.0); Mean Corpuscular HGB Conc 32.5 g/dl (32-36); Mean Corpuscular Hemoglobin 29.7 pg (26-34); Mean Corpuscular Volume 91.5 fl (80-100); Platelet Count Result 301 k/mm3 (150-375); Red Blood Count 5.15 M/mm3 (4.6-6.20); White Blood Count 9.2 K/mm3 (4.5-10.0)
[2024-11-18 08:03] LABS: Albumin Level 4.2 g/dL (3.5-5.1); Anion Gap 13 mmol/L (4-12); Blood Urea Nitrogen 32 mg/dL (9-20); Calcium 9.1 mg/dL (8.4-10.2); Carbon Dioxide 25 mmol/L (22-30); Chloride 102 mmol/L (98-107); Estimated Glomerular Filt Rate 46; Glucose 129 mg/dL (65-110); Potassium 4.5 mmol/L (3.4-5.0); Sodium 140 mmol/L (137-145)
[2024-11-18 09:13] LABS: Total Protein Urine Random 80 mg/dL; Ur Ttl Prot Creatinine Ratio 0.75 mg/mg (0-0.20)
[2024-11-18 09:48] LABS: Parathyroid Intact 44.5 pg/mL (14.5-75.2)
== END 2024-11-18 06:49 | disposition home or self-care (01) ==
LOC: ANHLAB 06:49
PROVIDERS: PCP Family Medicine; Visit Provider Internal Medicine Nephrology
DX: N18.31 Chronic kidney disease, stage 3a (principal)
CPT/HCPCS: 36415; 80069; 82570; 83970; 84156; 85027

== ENCOUNTER 2025-04-13 06:54 | Outpatient (CLI) | payer MEDICARE, SELFPAY ==
[2025-04-13 07:12] LABS: Hematocrit 46.4 % (42.0-52.0); Hemoglobin 15.2 g/dL (14.0-18.0); Immature Granulocyte Percent A 0.4 % (0-0.5); Lymphocytes Absolute Auto 2.59 K/mm3 (0.9-3.2); Mean Corpuscular HGB Conc 32.8 g/dl (32-36); Mean Corpuscular Hemoglobin 29.9 pg (26-34); Mean Corpuscular Volume 91.3 fl (80-100); Nucleated Red Blood Cells Absolute Auto 0.000 K/mm3 (0.0-0.012); Nucleated Red Blood Cells Perc 0.0 % (0.0-0.2); Platelet Count Result 268 k/mm3 (150-375); Red Blood Count 5.08 M/mm3 (4.6-6.20); White Blood Count 9.9 K/mm3 (4.5-10.0)
[2025-04-13 08:01] LABS: Alanine Aminotransferase 17 U/L (6-50); Albumin Level 4.4 g/dL (3.5-5.1); Alkaline Phosphatase 52 U/L (38-126); Anion Gap 10 mmol/L (4-12); Aspartate Amino Transferase 36 U/L (17-59); Bilirubin,Total 0.7 mg/dL (0.2-1.3); Blood Urea Nitrogen 41 mg/dL (9-20); Calcium 9.1 mg/dL (8.4-10.2); Carbon Dioxide 24 mmol/L (22-30); Chloride 103 mmol/L (98-107); Cholesterol 169 mg/dL (0-200); Estimated Glomerular Filt Rate 52; Glucose 157 mg/dL (65-110); HDL Direct 27 mg/dL; Potassium 5.1 mmol/L (3.4-5.0); Sodium 137 mmol/L (137-145); Total Protein 8.5 g/dL (6.3-8.2); Triglycerides 281 mg/dL (<150)
[2025-04-13 08:12] LABS: Hemoglobin A1C 6.6 % (<5.7)
[2025-04-13 09:12] LABS: MALB Creatinine Ratio 227.7 mg/g (0-30)
== END 2025-04-13 06:55 | disposition home or self-care (01) ==
LOC: ANHLAB 06:55
PROVIDERS: PCP Family Medicine; Visit Provider Family Medicine
DX: E11.22 Type 2 diabetes mellitus with diabetic chronic kidney disease (principal); I50.30 Unspecified diastolic (congestive) heart failure; I35.1 Nonrheumatic aortic (valve) insufficiency; I12.9 Hypertensive chronic kidney disease with stage 1 through stage 4 chronic kidney disease, or unspecified chronic kidney disease; N18.30 Chronic kidney disease, stage 3 unspecified
CPT/HCPCS: 36415; 80053; 80061; 82043; 83036; 85025